=== PATIENT | female | born 1975 | race Caucasian/White ===

== ENCOUNTER 2022-09-20 06:09 | Emergency (ER) | payer BC, SELFPAY ==
[2022-09-20] VITALS (7 sets, daily range): BP systolic 122–140; BP diastolic 85–103; PULSE 74–98; RESP 14–20; TEMP 36.7; O2SAT 98–100
--- NOTE | ~2022-09-20 | CT_ITS ---
Non-contrast Head CT History: Dizziness Technique: Axial non-contrast imaging of the brain was performed. Dose reduction technique was used on this scan by utilizing automated exposure control and iterative reconstruction technique. The dose -length product (DLP) was 605.33 mGy-cm. Findings: There is no evidence of intracranial hemorrhage, mass lesion, or acute infarct. Brain par enchyma appears normal. The ventricles and subarachnoid spaces are normal in size. The calvarium ap pears normal. The visualized paranasal sinuses and mastoid air cells are clear. Impression: No significant abnormality seen. Reviewed, dictated and finalized at location . Impression: No significant abnormality seen.
--- NOTE | 2022-09-20 07:04 | ECG_ITS ---
Measurements Intervals [place] Rate: 77 P: 54 CO: 163 QRS: 15 QRSD: 96 T: 8 QT: 368 QTc: 418 Interpretive Statements SINUS RHYTHM EARLY PRECORDIAL R/S TRANSITION VOLTAGE CRITERIA FOR LVH BORDERLINE ECG NO PREVIOUS ECG AVAILABLE FOR COMPARISON Electronically Signed On 09-20-2022 7:47:47 CDT by Chad Stockton D.O.
--- NOTE | 2022-09-20 07:19 | ED.DIZZY ---
HPI - Dizziness General Chief Complaint: Dizziness Stated Complaint: weak and dizzy Time Seen by Provider: 09/20/22 06:24 History of Present Illness HPI Narrative: 47-year-old female presenting to the emergency department for evaluation of multiple complaints including lightheaded dizziness and generalized weakness. Patient states when she woke during the night she had onset of some dizziness. Patient states she did have some anxiety associated with this. Patient states when she was trying to get her blood pressure cuff that she was fumbling with her right hand. Patient denies any focal weakness of the arms or legs. Patient states his symptoms have been intermittent but seem to be improved when she was lying still. Patient states it was worsened when she was in the waiting room and when she was driving here. Patient is unable to describe whether she has a moving sensation. Patient reports that her symptoms are improved during the exam. Symptoms are not able to be induced with turning her head or looking up. Patient states she does have some sinus congestion cough and seasonal allergies. Patient has not been taking anything for the the symptoms. Related Data Allergies Allergy/AdvReac Type Severity Reaction Status Date / Time No Known Allergies Allergy Verified 09/20/22 07:26 Review of Systems Review of Systems: All systems reviewed & are unremarkable except as noted in HPI and below PMFSH Family History Family History (Updated 12/08/15 @ 23:19 by DOCTOR UNKNOWN) Mother Hypertension Father Family history of elevated blood lipids Family history of diabetes mellitus in first degree relative Family history of heart disease in male family member before age 55 Grandparent Cerebrovascular accident Family history of emphysema Other Family history of malignant neoplasm of uterus Social History Social History Smoking status: Never smoker Alcohol intake: current Exam Narrative: APPEARANCE: Well appearing, no pain, no distress, well-nourished. HEAD: normocephalic, atraumatic. EYES: PERRLA/EOMI, conjunctivae clear. NOSE: Normal no drainage EARS:TMS clear with good light reflex. THROAT: Pharynx clear, no exudate. NECK: Supple. No adenopathy, no masses. RESPIRATORY: Airway patent, respirations nonlabored. Clear to auscultation bilaterally, no rales, rhonchi, wheezing. CARDIOVASCULAR: Regular rate and rhythm without murmurs rubs or gallops. ABDOMINAL: Soft, nontender, nondistended, normal bowel sounds MUSCULOSKELETAL: Moves all extremities. Strength/ROM intact, No edema, No calf tenderness. NEURO: Alert. Cranial nerves II through XII intact. No ataxia, normal strength, no weakness, normal reflexes. SKIN: Warm, dry. Normal Color Course Course Emergency Course: 47-year-old female presented emergency department for evaluation lightheaded dizziness and generalized weakness. Head CT was ordered to evaluate for intracranial abnormality. EKG was ordered to evaluate for cardiac arrhythmia. Baseline labs were ordered to evaluate for electrolyte abnormalities. Orthostatic vitals are being ordered. Patient is being treated with some IV fluids and meclizine for possible benign positional vertigo or dehydration Head CT was negative for acute intracranial abnormality. Patient was afebrile with no leukocytosis. Patient had did have a low potassium this was replaced orally. Patient was treated with IV fluids and did feel improved with rehydration and with meclizine. Patient was updated on the results of her work-up and was encouraged of close follow-up with her primary care physician for additional outpatient work-up as needed. Vital Signs Vital signs: Vital Signs Temperature 98.0 F 09/20/22 06:36 Pulse Rate 82 09/20/22 06:36 Respiratory Rate 14 09/20/22 06:36 Blood Pressure 132/92 H 09/20/22 06:36 Pulse Oximetry 98 09/20/22 06:36 Oxygen Delivery Room Air 09/20/22 06:36 Temperature 9
[2022-09-20 07:26] LABS: Basophils Percent Auto 0.4 % (0.2-1.2); Eosinophils Absolute Auto 0.1 K/mm3 (0-0.3); Eosinophils Percent Auto 0.5 % (0-4.4); Hemoglobin 11.2 g/dL (12.0-15.0); Immature Granulocyte Absolute 0.12 K/mm3 (0.00-0.031); Immature Granulocyte Percent A 1.3 % (0-0.5); Lymphocytes Percent Auto 31.6 % (18.3-44.2); Mean Corpuscular HGB Conc 33.9 g/dl (32-36); Mean Corpuscular Hemoglobin 32.6 pg (26-34); Mean Corpuscular Volume 95.9 fl (80-100); Mean Platelet Volume 9.4 fl (7.4-10.4); Monocytes Absolute Auto 0.6 K/mm3 (0.1-0.6); Monocytes Percent Auto 6.9 % (2.6-8.5); Neutrophils Absolute Auto 5.4 K/mm3 (1.3-6.7); Neutrophils Percent Auto 59.3 % (45.5-73.1); Platelet Count Result 245 k/mm3 (150-375); Red Blood Count 3.44 M/mm3 (4.2-5.4); Red Cell Distribution Width 12.6 % (11.5-14.5); White Blood Count 9.2 K/mm3 (4.5-10.0)
[2022-09-20] MEDS: MECLIZINE HCL 25 MG TABLET PO (07:34)
[2022-09-20] MEDS: SODIUM CHLORIDE 0.9% IV 1,000 ML 999 ML IV CONT (07:35)
[2022-09-20 07:40] LABS: Alanine Aminotransferase 56 U/L (6-35); Albumin Level 4.1 g/dL (3.5-5.1); Alkaline Phosphatase 33 U/L (38-126); Anion Gap 5 mmol/L (8-16); Aspartate Amino Transferase 66 U/L (14-36); Bilirubin,Total 0.3 mg/dL (0.2-1.3); Blood Urea Nitrogen 18 mg/dL (7-17); Calcium 9.4 mg/dL (8.4-10.2); Carbon Dioxide 31 mmol/L (22-30); Chloride 98 mmol/L (98-107); Estimated CRCL calculation 85 ml/min; Estimated Glomerular Filt Rate > 60; Glucose 168 mg/dL (65-110); Potassium 3.1 mmol/L (3.4-5.0); Sodium 134 mmol/L (137-145)
[2022-09-20] MEDS: POTASSIUM CHLORIDE 20 MEQ PACKET (FOR LIQUID) 40 MEQ PO (09:39)
== END 2022-09-20 10:06 | disposition home or self-care (01) ==
PROVIDERS: Emergency Provider Emergency Medicine; PCP Family Medicine
DX: R42 Dizziness and giddiness (principal)
CPT/HCPCS: 36415; 70450; 80053; 85025; 93005; 96360; 99284; A9270; J7030